=== PATIENT | female | born 1960 | race Caucasian/White ===

== ENCOUNTER → 2018-03-24 | Day surgery (SDC) | payer OTHER, MEDICARE ==
[~2018-03-24] VITALS: Ht 175.3 cm; Wt 64.4 kg
[~2018-03-24] MED LIST: AMLODIPINE BESY10 M1 PO; ARAVA20 M1 PO; BACLOFEN10 M1 PO; CYMBALTA30 M1 PO; MORPHINE SULFAT15 M4 PO; NEURONTIN800 M2 PO; PLAQUENIL200 M1 PO; ZOFRAN4 M2 PO; [UNRECOGNIZED DRUG - OTHER] PO
--- NOTE | 2018-03-24 10:57 | Operative Report ---
Operative/Inv Procedure Report Surgery Date: 03/24/18 Name of Procedure: C4/5 ACDF withs karyna tritanium cage, aviator plate, screws, autograft, DBM Pre-Operative Diagnosis: C4/5 HNP Post-Operative Diagnosis: same Estimated Blood Loss: less than 50ml Surgeon/Handyman: Marisela BRONW,Aquiles Lutz MD Anesthesia: general endotracheal tube Monitors: neurophysiologic monitoring IV Fluids: replaced with crystalloid Implants: karyna Drains: none Specimens: C4/5 disc material Complications: none Condition: stable Operative Indication: 57yo female with acute left C5 radiculopathy with severe neck and left shoulder, proximal arm pain and complete palsy of left C5 root and MRI c/w left central and foraminal HNP at C5 with left C5 root impingement now presents for surgical decompression and fusion. Operative/Procedure Note Note: Patient was taken the operating room. After appropriate patient identification and surgical timeout, neurophysiologic monitoring leads were placed and baseline recordings were obtained. Patient underwent smooth induction of general endotracheal anesthesia without incident.. Monitoring was stable after intubation. The patient was positioned supine on the operating table with the neck gently extended on a donut and the shoulders retracted downward with tape. Following positioning, monitoring was rechecked and noted to be stable. Patient was given 1 g of IV vancomycin and 1g IV kefzol in preoperative prophylaxis. DVT prophylaxis was utilized throughout the case. The left ventral neck was widely prepped and draped in usual sterile fashion using povidone iodine solution. A transverse linear skin incision was marked beginning in the midline and extending to the left a proximally 3 cm several in a pre-existing neck fold. The C-arm fluoroscope was sterilely draped in the field and we confirmed that the planned incision was immediately overlying the C4/5 interspace. The skin was infiltrated with local anesthetic. Skin incision was made with a 10 blade knife dissection was carried down through the subcutaneous tissue with the Bovie to the platysma muscle. The platysma was elevated and divided. Subplatysmal planes were created rostrally and caudally to facilitate tissue mobilization. The medial aspect of the sternocleidomastoid muscle was identified. The overlying fascia was incised in a rostral caudal fashion. A combination of digital and blunt dissection was used medial to the sternocleidomastoid and lateral to the trachea and esophagus down to the prevertebral fascia. The carotid sheath was identified and retracted laterally under hand-held retractor. The prevertebral fascia was incised and swept off the ventral aspect of the vertebral bodies with a peanut. Disc spaces were identified. A small gauge spinal needle was placed superficially within the disc space and confirm the level of C4/5. With the correct level verified, the disc space was marked with the Bovie and the longus coli muscles were reflected bilaterally. Self-retaining retractors were placed beneath the muscle. An annulotomy was performed with a 15 blade knife and a superficial discectomy was done with small straight and angled curettes and pituitary rongeurs. The osteophytes were removed with a [place] rongeur and the bone saved for subsequent arthrodesis to the back table. [place] pins were placed in the midpoint of the vertebral bodies in the disc space was gently distracted under direct and fluoroscopic guidance. Following distraction of the disc space, neurophysiologic monitoring was rechecked and noted to be stable. Discectomy at C4/5 was completed using combination of small straight and angled curettes and pituitary rongeurs. Findings included a disc fragment into the proximal left foramen with compression of the exiting root. The disc was removed with a microhook and pituitary rongeur piecemeal with excellent decompression of the left C5 root. Endplate osteophytes were resected with kerrisons. The remainder of the posterior longitudinal ligament was sequentially divided and removed with a 2 mm Kerrison punch until an excellent decompression of the underlying thecal sac was accomplished. Once removal of all the disc material, the dural sac appeared nicely decompressed. Once the decompression was completed, meticulous hemostasis was achieved using [place] in the epidural space and a cottonoid jing. All cartilaginous endplates were removed using combination of curettes and the Midas Ruperto drill to prepare the endplates for arthrodesis. Following the decompression, neurophysiologic monitoring was rechecked and noted to be stable. We then proceeded to arthrodesis and placement of the instrumentation. After appropriate trials, a 7 mm x 14 tritanium cage was selected. We filled the cage with demineralized bone matrix and morselized autograft from the osteophytectomy and gently tamped the cage into the C4/5 disc space under direct and fluoroscopic guidance. Once the cage was in position, we proceeded with placement of the anterior plate. The [place] retractor was released compressing the cage between the respective vertebral bodies in the [place] pins were removed. A small amount of bone bleeding was easily controlled with bone wax. After appropriate trials, 12 mm [place] anterior aviator plate was selected and provisionally placed from C4 to C5 with a plate-holding pin. The plate was then affixed to the vertebral body in a standard fashion with a series of 4, 14 mm screws. Screws placed by piercing the bone with an awl and placing a self drilling self-tapping screw with the C4 and C5 screws divergent from the vertebral endplates. The screws were finally tightened deploying the locking mechanism at all 4 locations. Final AP and lateral x-rays were obtained and saved and showed excellent position of the interbody cage and instrumentation. The retractors were removed. Hand-held retractors were then placed back into the wound which was inspected and meticulous hemostasis is achieved prior to wound closure. A small Hemovac drain was placed into the wound and secured to the skin with a 2-0 nylon suture. The platysma muscle was reapproximated with interrupted 3-0 Vicryl suture. Skin was closed in layers with interrupted 3-0 Vicryl suture in the dermis and a running 4-0 Vicryl subcutaneous stitch in the skin. The wound was cleaned and dried. Steri-Strips and a sterile occlusive dressing was placed. The patient was placed in a soft cervical collar. He was awakened in the operating room, extubated, and taken to PACU in stable condition. He was noted to be moving all 4 extremities at the completion of the case. All sponge needle and instrument counts are correct at the completion of procedure 3. Neurophysiologic monitoring was stable throughout the case. Findings: extruded left foraminal C4/5 HNP Discharge Disposition: PACU
--- NOTE | 2018-03-24 12:26 | Operative Report ---
Operative/Inv Procedure Report Surgery Date: 03/24/18 Name of Procedure: C4 5 anterior cervical fusion use of Jonatan titanium intervertebral biomechanical device use of [place] aviator anterior cervical plating system use of autograft use of allograft use of fluoroscopic guidance Pre-Operative Diagnosis: Left-sided C4 5 herniated nucleus pulposus Post-Operative Diagnosis: Same Estimated Blood Loss: less than 50ml Surgeon/Snow Shoveler: Aquiles Antonio MD,Brissa Flores Anesthesia: general endotracheal tube Operative/Procedure Note Note: After the successful administration of general endotracheal anesthesia all lines tubes and monitors was anesthesia team the patient positioned supine with head gently extended transverse roll placed across her shoulders to facilitate extension of the neck. We used the fluoroscope to plan a skin incision of C4 5 disc space in her left anterior neck in a crease. The patient was then prepped and draped in usual standard fashion a number 15 blade was used to incise the skin. Bovie cautery was used to divide the platysma a Sharp dissection was carried down to the deep cervical fascia, the carotid was retracted laterally and the trachea and esophagus medially. The deep cervical fascia was divided and a bayoneted spinal needles placed in the C4 5 disc space levels confirmed the fluoroscope the longus coli were elevated bilaterally. Soft tissue retractors were inserted longus coli we did disc space the #11 blade performed total discectomy using accommodation pituitaries and curettes. [place] pins placed the body of C4 and C5 and gentle in-line distraction was placed across interspace. The PLL was elevated and opened with a Kerrison punch in the left foramen a subligamentous disc herniation was encountered and removed accommodation of nerve hook and micropituitary's. After satisfied with the bony ligamentous decompression a high-speed drill was used to drill off the bony cartilage endplates to good bleeding bone. Hemostasis was obtained with FloSeal. We then trialed a 7 mm trial was the appropriate size titanium cage was packed morselized autograft and D was bone matrix putty was inserted and fluoroscopic guidance motors and sensors were stable. A 12 mm aviator plate was secured in place with 14 mm variable screws. All hardware excellent position confirmed by fluoroscopic shots. The intrinsic locking mechanism was locked with the screwdriver bleeding was minimal the retraction removed. The wound was then closed in layers using intra-Vicryls for the platysma the deep dermis and a subcuticular. Steri-Strips a dry sterile dressing were applied at end the case all needle counts sponge the correct patient was taken to the recovery in stable condition.
--- NOTE | 2018-03-25 13:41 | RADIOLOGY REPORT ---
EXAMINATION: XR CERVICAL SPINE CLINICAL INFORMATION: Anterior cervical discectomy. C4-C6 fusion. COMPARISON: 03/16/2018 TECHNIQUE: Intraoperative fluoroscopic imaging of cervical spine. NUMBER OF SAVED IMAGES: 5 FLUOROSCOPY TIME: 7.8 seconds. DOSE: 32.18 mrad FINDINGS: Patient is intubated within the operating room. Initial lateral fluoroscopic images of cervical spine demonstrates needle placement anterior to the C4-C5 disc space level. Subsequently, C4-C5 discectomy and anterior fusion was performed. The interbody fusion device, anterior plate and screws are in satisfactory position. Alignment is anatomic. IMPRESSION: Intraoperative fluoroscopic imaging of the cervical spine was utilized at the time of C4-C5 discectomy and fusion.
== END ==
LOC: STS 02:16
DX: M50.121 Cervical disc disorder at C4-C5 level with radiculopathy (principal); M25.512 Pain in left shoulder; M32.9 Systemic lupus erythematosus, unspecified; M35.00 Sjogren syndrome, unspecified; M79.7 Fibromyalgia; R13.10 Dysphagia, unspecified; D50.9 Iron deficiency anemia, unspecified; Z98.84 Bariatric surgery status
CPT/HCPCS: 36415; 72040; 88304; C1713; J0131; J2250; J3370; J3490; J7040